=== PATIENT | female | born 1960 | race Caucasian/White ===

== ENCOUNTER → 2017-07-04 | Outpatient (CLI) | payer BC, OTHER | LOC: RAD 01:55 | DX: Z12.31 Encounter for screening mammogram for malignant neoplasm of breast (principal) ==

== ENCOUNTER → 2018-07-10 | Outpatient (CLI) | payer BC | LOC: RAD 13:34 | DX: Z12.31 Encounter for screening mammogram for malignant neoplasm of breast (principal) ==